=== PATIENT | male | born 1975 | race Caucasian/White ===

== ENCOUNTER 2019-05-11 18:36 | Inpatient (IN) ==
[2019-05-11] MEDS ORDERED: SODIUM CHLORIDE 0.9% 1,000 ML IV STA (19:21)
[2019-05-11] MEDS ORDERED: FUROSEMIDE 40 MG/4 ML VIAL IV STA (19:48)
[2019-05-11 19:49] LABS: Allen Test Positive
[2019-05-11 19:51] LABS: ABG Base Excess 3.5 MMOL/L (-2.5-2.5); ABG HCO3 27.3 MMOL/L (20-26); ABG PCO2 35.6 MM HG (35-48); ABG PH 7.482 (7.35-7.45); ABG PO2 53.8 MM HG (80-95); ABG TCO2 22.7 MMOL/L (23-27)
[2019-05-11 20:23] LABS: Basophils % 0.3 % (0.0-0.8); Hematocrit 42.6 VOL% (42.0-52.0); Hemoglobin 14.3 GM/DL (14.0-18.0); Immature Granulocytes Absolute 0.07 #; Lymphocytes # 0.6 10*3/uL (1.4-4.0); Lymphocytes % 17.4 % (21.2-54.2); Mean Corpuscular HGB Conc 33.6 GM/DL (32-36); Mean Corpuscular Volume 91.4 FL (87-102); Mean Platelet Volume 9.8 FL (9.6-12.0); Monocytes % 3.2 % (1.7-12.7); Neutrophils % 77.1 % (38.7-73.9); Platelet Count 203 T/CUMM (130-400); Red Blood Count 4.66 MC/CUMM (3.8-5.5); Red Cell Distribution Width 13.2 % (9.3-17.3); White Blood Count 3.4 T/CUMM (4-12)
[2019-05-11 20:46] LABS: Alanine Aminotransferase 57 U/L (16-61); Albumin 2.6 G/DL (3.4-5.0); Alkaline Phosphatase 462 U/L (45-117); Aspartate Amino Transferase 105 U/L (0-37); Blood Urea Nitrogen 7 MG/DL (7-18); Calcium 8.3 MG/DL (8.5-10.1); Estimated Glom Filtration Rate 123 ML/MIN; Glucose 102 MG/DL (74-106); Osmolality,Calculated 257.8 MOS/KG (273-304); Total Protein 7.6 G/DL (6.4-8.3)
[2019-05-11 20:53] LABS: Band Neutrophils 1 % (0-10); Lymphocytes 12 % (20-55); Platelet Estimate Normal; Segmented Neutrophils 83 % (50-85); Total Cells Counted 100
[2019-05-11] MEDS ORDERED: LEVOFLOXACIN INJ 750 MG in PREMIX 1 EACH IV STA (21:07)
[2019-05-11] MEDS ORDERED: ALBUTEROL 2.5 MG/3 ML NEB RESP TX PRN (21:30)
[2019-05-11] MEDS ORDERED: ZALEPLON 5 MG CAPSULE PO PRN (21:35)
[2019-05-11] MEDS ORDERED: NICOTINE 21 MG/24 HR PATCH TRANSDERM PRN (21:35)
[2019-05-11] MEDS ORDERED: ACETAMINOPHEN 325 MG TABLET PO PRN (21:35)
[2019-05-11] MEDS ORDERED: DOCUSATE SODIUM 100 MG CAPSULE PO PRN (21:35)
[2019-05-11] MEDS ORDERED: ENOXAPARIN 100 MG/ML SYRINGE SUBCUT SCH (22:00)
[2019-05-11 22:22] LABS: Apearance,Urine CLEAR (Clear); Bilirubin,Urine Negative (Negative); Blood, Urine Small mg/dL (Negative); Glucose,Urine (UA) Negative (Negative); Ketones,Urine Negative (Negative); Mucus,Urine Occasional /LPF (Occasional); Nitrite,Urine Negative (Negative); Protein,Urine Negative; RBC,Urine 4 /HPF (0-4); Urine Color Yellow (Yellow); Urine Specific Gravity 1.013 (1.001-1.035); WBC,Urine 3 /HPF (0-6)
[2019-05-12] MEDS ORDERED: VANCOMYCIN INJ 2,000 MG in SODIUM CHLORIDE 0.9% 500 ML IV ONE
[2019-05-12] MEDS: ALBUTEROL/IPRATROPIUM 3 ML NEB RESP TX SCH ×7 (00:12→22:50)
[2019-05-12] MEDS: OSELTAMIVIR 75 MG CAPSULE PO SCH ×3 (00:55→20:58)
[2019-05-12 02:42] LABS: Basophils % 0.3 % (0.0-0.8); Hematocrit 39.6 VOL% (42.0-52.0); Hemoglobin 13.7 GM/DL (14.0-18.0); Immature Granulocytes % 2.9 %; Lymphocytes # 0.7 10*3/uL (1.4-4.0); Lymphocytes % 18.7 % (21.2-54.2); Mean Corpuscular HGB Conc 34.6 GM/DL (32-36); Mean Corpuscular Volume 89.8 FL (87-102); Mean Platelet Volume 9.8 FL (9.6-12.0); Monocytes % 4.6 % (1.7-12.7); Neutrophils % 73.5 % (38.7-73.9); Platelet Count 194 T/CUMM (130-400); Red Blood Count 4.41 MC/CUMM (3.8-5.5); Red Cell Distribution Width 13.3 % (9.3-17.3); White Blood Count 3.5 T/CUMM (4-12)
[2019-05-12 02:58] LABS: Albumin 2.4 G/DL (3.4-5.0); Bilirubin,Total 0.6 MG/DL (0.2-1.0); Calcium 7.9 MG/DL (8.5-10.1); Osmolality,Calculated 256.9 MOS/KG (273-304); Total Protein 7.2 G/DL (6.4-8.3)
[2019-05-12 03:12] LABS: Lymphocytes 12 % (20-55); Segmented Neutrophils 83 % (50-85)
[2019-05-12 03:13] LABS: Platelet Estimate Normal; Total Cells Counted 100
[2019-05-12 04:37] LABS: Allen Test Positive; Pt O2 Delivery Device Other
[2019-05-12 04:38] LABS: ABG Base Excess 4.5 MMOL/L (-2.5-2.5); ABG HCO3 28.4 MMOL/L (20-26); ABG Oxygen Saturation 97.8 % (95-100); ABG PCO2 36.4 MM HG (35-48); ABG TCO2 23.7 MMOL/L (23-27)
[2019-05-12] MEDS: PIPERACILLIN/TAZOBACTAM 3,375 MG in SODIUM CHLORIDE 0.9% 100 ML IV SCH ×3 (04:55→22:28)
[2019-05-12] MEDS: ENOXAPARIN 40 MG/0.4 ML SYRINGE SUBCUT SCH (09:30)
[2019-05-12] MEDS: PANTOPRAZOLE 40 MG TABLET PO SCH ×2 (09:30→20:59)
[2019-05-12] MEDS ORDERED: PRAMIPEXOLE 1 MG TABLET PO ONE (10:20)
[2019-05-12] MEDS: VANCOMYCIN INJ 1,500 MG in SODIUM CHLORIDE 0.9% 500 ML IV SCH (11:12)
[2019-05-12] MEDS: FLUoxetine 20 MG CAPSULE PO SCH (20:59)
[2019-05-12] MEDS: DIVALPROEX 500 MG TABLET PO SCH (20:59)
[2019-05-12] MEDS: GABAPENTIN 300 MG CAPSULE PO SCH (20:59)
[2019-05-12] MEDS: PRAMIPEXOLE 1 MG TABLET PO SCH (21:00)
[2019-05-12] MEDS: LEVOFLOXACIN INJ 750 MG in PREMIX 1 EACH IV SCH (21:00)
[2019-05-13] MEDS: VANCOMYCIN INJ 1,500 MG in SODIUM CHLORIDE 0.9% 500 ML IV SCH ×2 (00:30→12:45)
[2019-05-13] MEDS: ALBUTEROL/IPRATROPIUM 3 ML NEB RESP TX SCH ×6 (02:44→22:40)
[2019-05-13 05:08] LABS: Basophils % 0.3 % (0.0-0.8); Eosinophils % 1.1 % (0.00-10.9); Hematocrit 37.2 VOL% (42.0-52.0); Hemoglobin 12.3 GM/DL (14.0-18.0); Immature Granulocytes % 3.7 %; Immature Granulocytes Absolute 0.13 #; Lymphocytes # 0.7 10*3/uL (1.4-4.0); Lymphocytes % 20.8 % (21.2-54.2); Mean Corpuscular HGB Conc 33.1 GM/DL (32-36); Mean Platelet Volume 9.5 FL (9.6-12.0); Monocytes % 6.5 % (1.7-12.7); Neutrophils % 67.6 % (38.7-73.9); Platelet Count 211 T/CUMM (130-400); Red Cell Distribution Width 13.4 % (9.3-17.3); White Blood Count 3.6 T/CUMM (4-12)
[2019-05-13 05:37] LABS: Calcium 7.9 MG/DL (8.5-10.1); Osmolality,Calculated 265.2 MOS/KG (273-304)
[2019-05-13 05:52] LABS: Band Neutrophils 1 % (0-10); Eosinophils 2 % (0-10); Lymphocytes 22 % (20-55); Segmented Neutrophils 71 % (50-85); Total Cells Counted 100
[2019-05-13 05:55] LABS: Atypical Lymphocytes Few; Hypochromasia 1+; Platelet Estimate Normal; Reactive Lymphocytes Few
[2019-05-13] MEDS: PIPERACILLIN/TAZOBACTAM 3,375 MG in SODIUM CHLORIDE 0.9% 100 ML IV SCH ×3 (06:58→22:32)
[2019-05-13] MEDS: OSELTAMIVIR 75 MG CAPSULE PO SCH (09:26)
[2019-05-13] MEDS: PANTOPRAZOLE 40 MG TABLET PO SCH ×2 (09:26→20:54)
[2019-05-13] MEDS: ENOXAPARIN 40 MG/0.4 ML SYRINGE SUBCUT SCH (09:26)
[2019-05-13] MEDS: FLUoxetine 20 MG CAPSULE PO SCH (20:53)
[2019-05-13] MEDS: GABAPENTIN 300 MG CAPSULE PO SCH (20:53)
[2019-05-13] MEDS: PRAMIPEXOLE 1 MG TABLET PO SCH (20:53)
[2019-05-13] MEDS: DIVALPROEX 500 MG TABLET PO SCH (20:53)
[2019-05-13] MEDS: LEVOFLOXACIN INJ 750 MG in PREMIX 1 EACH IV SCH (20:54)
[2019-05-14] MEDS: ALBUTEROL/IPRATROPIUM 3 ML NEB RESP TX SCH ×6 (02:40→23:39)
[2019-05-14 03:58] LABS: Allen Test Positive; Pt O2 Delivery Device Venturi Mask
[2019-05-14 03:59] LABS: ABG Base Excess 5.3 MMOL/L (-2.5-2.5); ABG HCO3 29.1 MMOL/L (20-26); ABG PCO2 39.2 MM HG (35-48); ABG PH 7.479 (7.35-7.45); ABG PO2 65.2 MM HG (80-95); ABG TCO2 25.6 MMOL/L (23-27)
[2019-05-14] MEDS: PIPERACILLIN/TAZOBACTAM 3,375 MG in SODIUM CHLORIDE 0.9% 100 ML IV SCH (05:08)
[2019-05-14 06:01] LABS: Basophils % 0.5 % (0.0-0.8); Eosinophils # 0.1 10*3/uL (0.0-0.87); Eosinophils % 1.6 % (0.00-10.9); Hematocrit 36.2 VOL% (42.0-52.0); Immature Granulocytes Absolute 0.22 #; Lymphocytes # 0.7 10*3/uL (1.4-4.0); Mean Corpuscular HGB Conc 33.1 GM/DL (32-36); Mean Corpuscular Volume 92.6 FL (87-102); Monocytes % 9.2 % (1.7-12.7); Neutrophils % 67.7 % (38.7-73.9); Platelet Count 266 T/CUMM (130-400); Red Blood Count 3.91 MC/CUMM (3.8-5.5); Red Cell Distribution Width 13.6 % (9.3-17.3); White Blood Count 4.4 T/CUMM (4-12)
[2019-05-14 06:26] LABS: Calcium 8.3 MG/DL (8.5-10.1); Osmolality,Calculated 268.1 MOS/KG (273-304)
[2019-05-14] MEDS: ENOXAPARIN 40 MG/0.4 ML SYRINGE SUBCUT SCH (10:23)
[2019-05-14] MEDS: PANTOPRAZOLE 40 MG TABLET PO SCH ×2 (10:23→21:31)
[2019-05-14] MEDS: AZITHROMYCIN 250 MG TABLET PO SCH (10:27)
[2019-05-14] MEDS: LEVOFLOXACIN INJ 750 MG in PREMIX 1 EACH IV SCH (21:30)
[2019-05-14] MEDS: GABAPENTIN 300 MG CAPSULE PO SCH (21:31)
[2019-05-14] MEDS: PRAMIPEXOLE 1 MG TABLET PO SCH (21:31)
[2019-05-14] MEDS: FLUoxetine 20 MG CAPSULE PO SCH (21:31)
[2019-05-14] MEDS: DIVALPROEX 500 MG TABLET PO SCH (21:31)
[2019-05-15] MEDS: ALBUTEROL/IPRATROPIUM 3 ML NEB RESP TX SCH ×6 (04:09→23:50)
[2019-05-15 05:20] LABS: Basophils % 0.6 % (0.0-0.8); Eosinophils # 0.1 10*3/uL (0.0-0.87); Eosinophils % 1.9 % (0.00-10.9); Hematocrit 36.1 VOL% (42.0-52.0); Immature Granulocytes Absolute 0.29 #; Lymphocytes # 0.7 10*3/uL (1.4-4.0); Lymphocytes % 14.2 % (21.2-54.2); Mean Corpuscular HGB Conc 33.2 GM/DL (32-36); Mean Corpuscular Volume 92.3 FL (87-102); Mean Platelet Volume 10.1 FL (9.6-12.0); Monocytes % 9.5 % (1.7-12.7); Neutrophils % 67.8 % (38.7-73.9); Platelet Count 308 T/CUMM (130-400); Red Blood Count 3.91 MC/CUMM (3.8-5.5); Red Cell Distribution Width 13.7 % (9.3-17.3); White Blood Count 4.9 T/CUMM (4-12)
[2019-05-15 05:42] LABS: Eosinophils 2 % (0-10); Hypochromasia 1+; Lymphocytes 16 % (20-55); Platelet Estimate Adequate; Segmented Neutrophils 71 % (50-85); Total Cells Counted 100
[2019-05-15 05:44] LABS: Calcium 8.5 MG/DL (8.5-10.1); Osmolality,Calculated 266.2 MOS/KG (273-304)
[2019-05-15] MEDS: AZITHROMYCIN 250 MG TABLET PO SCH (09:25)
[2019-05-15] MEDS: PANTOPRAZOLE 40 MG TABLET PO SCH ×2 (09:26→21:23)
[2019-05-15] MEDS: ENOXAPARIN 40 MG/0.4 ML SYRINGE SUBCUT SCH (09:26)
[2019-05-15] MEDS: GABAPENTIN 300 MG CAPSULE PO SCH (21:23)
[2019-05-15] MEDS: PRAMIPEXOLE 1 MG TABLET PO SCH (21:23)
[2019-05-15] MEDS: FLUoxetine 20 MG CAPSULE PO SCH (21:23)
[2019-05-15] MEDS: DIVALPROEX 500 MG TABLET PO SCH (21:23)
[2019-05-15] MEDS: LEVOFLOXACIN INJ 750 MG in PREMIX 1 EACH IV SCH (21:25)
[2019-05-16] MEDS: ALBUTEROL/IPRATROPIUM 3 ML NEB RESP TX SCH ×6 (00:04→19:23)
[2019-05-16 05:07] LABS: Basophils % 0.7 % (0.0-0.8); Eosinophils # 0.1 10*3/uL (0.0-0.87); Eosinophils % 2.2 % (0.00-10.9); Hematocrit 36.9 VOL% (42.0-52.0); Immature Granulocytes % 7.3 %; Immature Granulocytes Absolute 0.42 #; Lymphocytes # 0.7 10*3/uL (1.4-4.0); Lymphocytes % 12.1 % (21.2-54.2); Mean Corpuscular HGB Conc 32.5 GM/DL (32-36); Mean Corpuscular Volume 94.4 FL (87-102); Mean Platelet Volume 10.1 FL (9.6-12.0); Monocytes % 9.8 % (1.7-12.7); Neutrophils % 67.9 % (38.7-73.9); Platelet Count 352 T/CUMM (130-400); Red Blood Count 3.91 MC/CUMM (3.8-5.5); Red Cell Distribution Width 13.8 % (9.3-17.3); White Blood Count 5.8 T/CUMM (4-12)
[2019-05-16 05:27] LABS: Band Neutrophils 1 % (0-10); Eosinophils 6 % (0-10); Lymphocytes 11 % (20-55); Segmented Neutrophils 73 % (50-85); Total Cells Counted 100
[2019-05-16 05:28] LABS: Hypochromasia Slight; Platelet Estimate Normal
[2019-05-16 05:33] LABS: Calcium 8.4 MG/DL (8.5-10.1); Osmolality,Calculated 263.4 MOS/KG (273-304)
[2019-05-16] MEDS: ENOXAPARIN 40 MG/0.4 ML SYRINGE SUBCUT SCH (09:39)
[2019-05-16] MEDS: PANTOPRAZOLE 40 MG TABLET PO SCH ×2 (09:39→21:09)
[2019-05-16] MEDS: ONDANSETRON 4 MG/2 ML VIAL IV PRN ×3 (09:51→22:50)
[2019-05-16] MEDS ORDERED: FUROSEMIDE 40 MG/4 ML VIAL IV ONE (15:35)
[2019-05-16] MEDS: FLUoxetine 20 MG CAPSULE PO SCH (21:09)
[2019-05-16] MEDS: DIVALPROEX 500 MG TABLET PO SCH (21:09)
[2019-05-16] MEDS: GABAPENTIN 300 MG CAPSULE PO SCH (21:09)
[2019-05-16] MEDS: PRAMIPEXOLE 1 MG TABLET PO SCH (21:09)
[2019-05-16] MEDS: LEVOFLOXACIN INJ 750 MG in PREMIX 1 EACH IV SCH (21:10)
[2019-05-17] MEDS: ALBUTEROL/IPRATROPIUM 3 ML NEB RESP TX SCH ×6 (01:06→19:37)
[2019-05-17] MEDS: ONDANSETRON 4 MG/2 ML VIAL IV PRN ×2 (05:09→18:39)
[2019-05-17 05:50] LABS: Basophils % 0.5 % (0.0-0.8); Eosinophils # 0.2 10*3/uL (0.0-0.87); Eosinophils % 2.4 % (0.00-10.9); Hematocrit 36.5 VOL% (42.0-52.0); Hemoglobin 12.1 GM/DL (14.0-18.0); Immature Granulocytes % 6.3 %; Lymphocytes # 0.9 10*3/uL (1.4-4.0); Lymphocytes % 14.6 % (21.2-54.2); Mean Corpuscular HGB Conc 33.2 GM/DL (32-36); Mean Corpuscular Volume 92.2 FL (87-102); Mean Platelet Volume 9.9 FL (9.6-12.0); Monocytes % 12.5 % (1.7-12.7); Neutrophils % 63.7 % (38.7-73.9); Platelet Count 375 T/CUMM (130-400); Red Blood Count 3.96 MC/CUMM (3.8-5.5); Red Cell Distribution Width 13.5 % (9.3-17.3); White Blood Count 6.3 T/CUMM (4-12)
[2019-05-17 06:15] LABS: Eosinophils 3 % (0-10); Lymphocytes 16 % (20-55); Metamyelocytes 7 %; Myelocytes 1 %; Platelet Estimate Normal; Segmented Neutrophils 63 % (50-85); Total Cells Counted 100
[2019-05-17 06:16] LABS: Anisocytosis 1+; Giant Platelets Few; Macrocytosis 1+
[2019-05-17 06:29] LABS: Calcium 8.7 MG/DL (8.5-10.1); Osmolality,Calculated 256.9 MOS/KG (273-304)
[2019-05-17] MEDS: ENOXAPARIN 40 MG/0.4 ML SYRINGE SUBCUT SCH (09:20)
[2019-05-17] MEDS: PANTOPRAZOLE 40 MG TABLET PO SCH ×2 (09:20→21:43)
[2019-05-17] MEDS: FLUoxetine 20 MG CAPSULE PO SCH (21:42)
[2019-05-17] MEDS: guaiFENesin/DM ER 600-30 MG TABLET PO PRN (21:43)
[2019-05-17] MEDS: GABAPENTIN 300 MG CAPSULE PO SCH (21:43)
[2019-05-17] MEDS: PRAMIPEXOLE 1 MG TABLET PO SCH (21:43)
[2019-05-17] MEDS: DIVALPROEX 500 MG TABLET PO SCH (21:43)
[2019-05-17] MEDS: LEVOFLOXACIN INJ 750 MG in PREMIX 1 EACH IV SCH (21:44)
[2019-05-18] MEDS: ALBUTEROL/IPRATROPIUM 3 ML NEB RESP TX SCH ×6 (00:36→20:13)
[2019-05-18] MEDS: ONDANSETRON 4 MG/2 ML VIAL IV PRN (02:20)
[2019-05-18 05:00] LABS: Basophils % 0.3 % (0.0-0.8); Eosinophils # 0.2 10*3/uL (0.0-0.87); Eosinophils % 2.3 % (0.00-10.9); Hematocrit 38.2 VOL% (42.0-52.0); Hemoglobin 12.6 GM/DL (14.0-18.0); Immature Granulocytes % 5.3 %; Immature Granulocytes Absolute 0.35 #; Lymphocytes # 1.1 10*3/uL (1.4-4.0); Lymphocytes % 16.8 % (21.2-54.2); Mean Corpuscular Volume 92.9 FL (87-102); Mean Platelet Volume 9.7 FL (9.6-12.0); Monocytes % 14.3 % (1.7-12.7); Platelet Count 370 T/CUMM (130-400); Red Blood Count 4.11 MC/CUMM (3.8-5.5); Red Cell Distribution Width 13.4 % (9.3-17.3); White Blood Count 6.7 T/CUMM (4-12)
[2019-05-18 05:52] LABS: Band Neutrophils 2 % (0-10); Eosinophils 3 % (0-10); Hypochromasia Slight; Lymphocytes 19 % (20-55); Microcytosis Slight; Myelocytes 1 %; Nucleated Red Blood Cells 1 (0-5); Platelet Estimate Normal; Segmented Neutrophils 62 % (50-85); Total Cells Counted 100
[2019-05-18 06:47] LABS: Calcium 8.6 MG/DL (8.5-10.1); Osmolality,Calculated 260.7 MOS/KG (273-304)
[2019-05-18] MEDS: ENOXAPARIN 40 MG/0.4 ML SYRINGE SUBCUT SCH (08:35)
[2019-05-18] MEDS: PANTOPRAZOLE 40 MG TABLET PO SCH ×2 (08:35→22:15)
[2019-05-18] MEDS: DIVALPROEX 500 MG TABLET PO SCH (10:15)
[2019-05-18] MEDS: GABAPENTIN 300 MG CAPSULE PO SCH (22:15)
[2019-05-18] MEDS: PRAMIPEXOLE 1 MG TABLET PO SCH (22:15)
[2019-05-18] MEDS: FLUoxetine 20 MG CAPSULE PO SCH (22:15)
[2019-05-18] MEDS: guaiFENesin/DM ER 600-30 MG TABLET PO PRN (22:45)
[2019-05-19] MEDS: LEVOFLOXACIN INJ 750 MG in PREMIX 1 EACH IV SCH (00:06)
[2019-05-19] MEDS: ALBUTEROL/IPRATROPIUM 3 ML NEB RESP TX SCH ×7 (00:13→23:45)
[2019-05-19] MEDS: ONDANSETRON 4 MG/2 ML VIAL IV PRN ×2 (00:47→08:18)
[2019-05-19] MEDS: guaiFENesin/DM ER 600-30 MG TABLET PO PRN (08:10)
[2019-05-19] MEDS: ENOXAPARIN 40 MG/0.4 ML SYRINGE SUBCUT SCH (08:10)
[2019-05-19] MEDS: PANTOPRAZOLE 40 MG TABLET PO SCH ×2 (08:10→21:10)
[2019-05-19] MEDS: FLUoxetine 20 MG CAPSULE PO SCH (21:09)
[2019-05-19] MEDS: GABAPENTIN 300 MG CAPSULE PO SCH (21:09)
[2019-05-19] MEDS: DIVALPROEX 500 MG TABLET PO SCH (21:09)
[2019-05-19] MEDS: PRAMIPEXOLE 1 MG TABLET PO SCH (21:10)
[2019-05-20] MEDS: ALBUTEROL/IPRATROPIUM 3 ML NEB RESP TX SCH ×6 (03:32→23:32)
[2019-05-20 05:36] LABS: Basophils % 0.3 % (0.0-0.8); Eosinophils # 0.1 10*3/uL (0.0-0.87); Eosinophils % 0.5 % (0.00-10.9); Hematocrit 36.7 VOL% (42.0-52.0); Immature Granulocytes % 2.6 %; Immature Granulocytes Absolute 0.29 #; Lymphocytes # 1.4 10*3/uL (1.4-4.0); Lymphocytes % 12.6 % (21.2-54.2); Mean Corpuscular HGB Conc 32.7 GM/DL (32-36); Mean Corpuscular Volume 94.6 FL (87-102); Mean Platelet Volume 9.8 FL (9.6-12.0); Platelet Count 365 T/CUMM (130-400); Red Blood Count 3.88 MC/CUMM (3.8-5.5); Red Cell Distribution Width 13.5 % (9.3-17.3); White Blood Count 11.2 T/CUMM (4-12)
[2019-05-20 05:52] LABS: Calcium 8.8 MG/DL (8.5-10.1); Osmolality,Calculated 261.7 MOS/KG (273-304)
[2019-05-20] MEDS: ENOXAPARIN 40 MG/0.4 ML SYRINGE SUBCUT SCH (08:32)
[2019-05-20] MEDS: PANTOPRAZOLE 40 MG TABLET PO SCH ×2 (08:32→21:06)
[2019-05-20] MEDS: LEVOFLOXACIN 750 MG TABLET PO SCH (08:32)
[2019-05-20] MEDS: FLUoxetine 20 MG CAPSULE PO SCH (21:06)
[2019-05-20] MEDS: PRAMIPEXOLE 1 MG TABLET PO SCH (21:06)
[2019-05-20] MEDS: DIVALPROEX 500 MG TABLET PO SCH (21:07)
[2019-05-20] MEDS: GABAPENTIN 300 MG CAPSULE PO SCH (21:07)
[2019-05-21] MEDS: ALBUTEROL/IPRATROPIUM 3 ML NEB RESP TX SCH ×3 (03:20→11:02)
[2019-05-21 06:04] LABS: Calcium 9.1 MG/DL (8.5-10.1); Osmolality,Calculated 264.5 MOS/KG (273-304)
[2019-05-21 06:11] LABS: Basophils % 0.5 % (0.0-0.8); Eosinophils # 0.1 10*3/uL (0.0-0.87); Eosinophils % 1.5 % (0.00-10.9); Hematocrit 36.9 VOL% (42.0-52.0); Immature Granulocytes % 2.5 %; Lymphocytes # 1.2 10*3/uL (1.4-4.0); Lymphocytes % 15.1 % (21.2-54.2); Mean Corpuscular HGB Conc 32.5 GM/DL (32-36); Mean Corpuscular Volume 92.7 FL (87-102); Mean Platelet Volume 10.1 FL (9.6-12.0); Monocytes % 11.4 % (1.7-12.7); Platelet Count 326 T/CUMM (130-400); Red Blood Count 3.98 MC/CUMM (3.8-5.5); Red Cell Distribution Width 13.5 % (9.3-17.3); White Blood Count 8.1 T/CUMM (4-12)
[2019-05-21] MEDS: LEVOFLOXACIN 750 MG TABLET PO SCH (08:19)
[2019-05-21] MEDS: ENOXAPARIN 40 MG/0.4 ML SYRINGE SUBCUT SCH (08:19)
[2019-05-21] MEDS: PANTOPRAZOLE 40 MG TABLET PO SCH (08:19)
[2019-05-21 11:59] VITALS: BP 125/63
== END 2019-05-21 14:20 | disposition home or self-care (01) | DRG 133 ==
LOC: EDUNIT# → EDBD → N.ED 18:36 → SUATTDRO 21:35 → N.EDINP 21:35 → N.5E 23:20
PROVIDERS: ADMIT Hospitalist; ATTEND Internal Medicine

== ENCOUNTER 2021-07-23 15:32 | Observation (INO) ==
[2021-07-23] MEDS ORDERED: SODIUM CHLORIDE 0.9% 1,000 ML IV STA (16:34)
[2021-07-23 17:16] LABS: Glucose,Urine (UA) >1000 mg/dL (Negative); Ketones,Urine 15 mg/dL (Negative); Protein,Urine Negative (Negative); RBC,Urine 2 /HPF (0-4); Squamous Epithelial Cell,Urine Occasional /HPF (0-10); Urine Appearance Clear (Clear); Urine Color Yellow (Yellow)
[2021-07-23 17:17] LABS: Bilirubin,Urine Negative (Negative); Blood, Urine Trace mg/dL (Negative); Nitrite,Urine Negative (Negative); Urine Urobilinogen 0.2 eU/dL (<2.0)
[2021-07-23 17:28] LABS: Barbiturates Screen,Urine Negative (Negative); Benzodiazepines Screen,Urine Negative (Negative); Cannabinoid Screen,Urine Negative (Negative); Opiate Screen,Urine Negative (Negative); Phencyclidine Screen,Urine Negative (Negative)
[2021-07-23 17:42] LABS: Basophils # 0.1 10*3/uL (0.0-0.2); Basophils % 0.7 % (0.0-0.8); Eosinophils # 0.2 10*3/uL (0.0-0.87); Eosinophils % 2.2 % (0.00-10.9); Hemoglobin 15.2 GM/DL (14.0-18.0); Immature Granulocytes % 0.4 %; Immature Granulocytes Absolute 0.03 #; Lymphocytes # 2.3 10*3/uL (1.4-4.0); Lymphocytes % 33.3 % (21.2-54.2); Mean Corpuscular HGB Conc 35.3 GM/DL (32-36); Mean Corpuscular Volume 90.1 FL (87-102); Mean Platelet Volume 12.1 FL (9.6-12.0); Monocytes # 0.7 10*3/uL (0.11-0.8); Monocytes % 9.5 % (1.7-12.7); Neutrophils % 53.9 % (38.7-73.9); Platelet Count 256 T/CUMM (130-400); Red Blood Count 4.77 MC/CUMM (3.8-5.5); Red Cell Distribution Width 12.3 % (9.3-17.3); White Blood Count 6.8 T/CUMM (4-12)
[2021-07-23 17:54] LABS: Blood Urea Nitrogen 11 MG/DL (7-18); Calcium 8.8 MG/DL (8.5-10.1); Estimated Glom Filtration Rate 78 ML/MIN
[2021-07-23 17:55] LABS: Carbon Dioxide 22 MMOL/L (21-32); Chloride 96 MMOL/L (98-107); Osmolality,Calculated 282.9 MOS/KG (273-304); Potassium 3.9 MMOL/L (3.5-5.1); Sodium 129 MMOL/L (136-145)
[2021-07-23 17:59] LABS: Glucose 567 MG/DL (74-106)
[2021-07-23] MEDS ORDERED: INSULIN REGULAR 100 UNIT/ML IV STA (18:12)
[2021-07-23] MEDS ORDERED: DEXTROSE 50% 25 GM/50 ML VIAL IV PRN (19:20)
[2021-07-23] MEDS ORDERED: GLUCAGON 1 MG VIAL IM PRN (19:20)
[2021-07-23] MEDS ORDERED: DOCUSATE SODIUM 100 MG CAPSULE PO PRN (19:20)
[2021-07-23] MEDS ORDERED: ONDANSETRON 4 MG/2 ML VIAL IV PRN (19:20)
[2021-07-23] MEDS ORDERED: hydrALAZINE 20 MG/1 ML VIAL IV PRN (19:20)
[2021-07-23] MEDS ORDERED: ACETAMINOPHEN 325 MG TABLET PO PRN (19:20)
[2021-07-23] MEDS ORDERED: ZALEPLON 5 MG CAPSULE PO PRN (19:20)
[2021-07-23] MEDS ORDERED: SODIUM CHLORIDE 0.45% 1,000 ML IV SCH (19:30)
[2021-07-23] MEDS ORDERED: DEXTROSE 10% 250 ML BAG IV PRN (19:35)
[2021-07-23] MEDS: SODIUM CHLORIDE 0.9% 1,000 ML IV SCH (20:09)
[2021-07-23] MEDS ORDERED: ENOXAPARIN 40 MG/0.4 ML SYRINGE SUBCUT SCH (21:00)
[2021-07-23] MEDS ORDERED: INSULIN GLARGINE 100 UNIT/ML SUBCUT SCH (21:00)
[2021-07-23] MEDS: INSULIN REGULAR 100 UNIT/ML SUBCUT SCH (21:07)
[2021-07-24] MEDS: SODIUM CHLORIDE 0.9% 1,000 ML IV SCH (04:39)
[2021-07-24 06:46] LABS: Basophils % 0.7 % (0.0-0.8); Eosinophils # 0.4 10*3/uL (0.0-0.87); Eosinophils % 6.9 % (0.00-10.9); Hematocrit 38.1 VOL% (42.0-52.0); Hemoglobin 13.7 GM/DL (14.0-18.0); Immature Granulocytes % 0.6 %; Immature Granulocytes Absolute 0.03 #; Lymphocytes # 1.9 10*3/uL (1.4-4.0); Lymphocytes % 35.9 % (21.2-54.2); Mean Corpuscular Volume 91.4 FL (87-102); Mean Platelet Volume 11.7 FL (9.6-12.0); Monocytes # 0.5 10*3/uL (0.11-0.8); Monocytes % 9.1 % (1.7-12.7); Neutrophils % 46.8 % (38.7-73.9); Platelet Count 210 T/CUMM (130-400); Red Blood Count 4.17 MC/CUMM (3.8-5.5); Red Cell Distribution Width 12.5 % (9.3-17.3); White Blood Count 5.4 T/CUMM (4-12)
[2021-07-24 07:44] LABS: Albumin 2.9 G/DL (3.4-5.0); Bilirubin,Total 0.4 MG/DL (0.20-1.00); Calcium 7.5 MG/DL (8.5-10.1); Osmolality,Calculated 278.5 MOS/KG (273-304); Potassium 3.3 MMOL/L (3.5-5.1); Risk Ratio 10.21; Thyroid Stimulating Hormone 2.02 uIU/ml (0.358-3.74); Total Protein 5.8 G/DL (6.4-8.2); VLDL Cholesterol 294.4 MG/DL
[2021-07-24] MEDS ORDERED: POTASSIUM CHLORIDE 20 MEQ TABLET PO ONE (08:00)
[2021-07-24] MEDS: INSULIN REGULAR 100 UNIT/ML SUBCUT SCH ×2 (08:44→12:16)
[2021-07-24] MEDS ORDERED: PANTOPRAZOLE 40 MG TABLET PO SCH (09:00)
[2021-07-24 13:39] VITALS: BP 125/63
[2021-07-24 17:25] LABS: Arterial Base Excess iSTAT 0 MMOL/L (-2.5-2.5); Arterial Bicarbonate iSTAT 23.4 MMOL/L (20-26); Arterial O2 Saturation iSTAT 96 % (95-100); Arterial PCO2 iSTAT 35 MM HG (35-48); Arterial PO2 iSTAT 81 MM HG (80-95); Arterial Total CO2 iSTAT 24 MMO/L (23-27); Arterial pH iSTAT 7.431 (7.35-7.45)
== END 2021-07-24 14:27 | disposition home health service (06) ==
LOC: N.ED 15:32 → N.EDINP 15:32 → N.3E 20:32
PROVIDERS: ADMIT Internal Medicine; ATTEND Internal Medicine